=== PATIENT | male | born 1965 | race Caucasian/White ===

== ENCOUNTER 2019-12-12 10:38 | Emergency (ER) | payer OTHER ==
[2019-12-12 10:48] VITALS: BP 151/87; PULSE 73; TEMP 98.4; BMI 34.2
[2019-12-12] MEDS ORDERED: KETOROLAC TROMETHAMINE 30 MG/1 ML VIAL IM ONE (11:13)
[2019-12-12] MEDS ORDERED: KETOROLAC TROMETHAMINE 30 MG/1 ML VIAL ONE (11:22)
--- NOTE | 2019-12-12 11:25 | PDOC ---
History of Present Illness - General Chief Complaint: Back Pain Stated Complaint: LOWER BACK PAIN Time Seen by Provider: 12/12/19 11:10 History Source: Patient Exam Limitations: Clinical Condition - History of Present Illness Initial Comments: 12/12/19 11:21 Patient with no significant past medical history present with complaint of 3-day history of bilateral lower back pain which is worse with movement and getting up from sitting or laying position. 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 Denies any trauma or injury to back. Denies any history of chronic back pain. Denies any radiculopathy. Denies urinary frequency, dysuria, burning urination or urinary urgency. Report taking Aleve for symptoms with minimal improvement. Denies any other symptoms Occurred: reports: other (2 days) Severity: reports: moderate Pain Location: reports: back Method of Injury: Yes: unknown Modifying Factors: improves with: pain medication (aleve) Past History - Medical History Allergies/Adverse Reactions: Allergies Allergy/AdvReac Type Severity Reaction Status Date / Time No Known Allergies Allergy Verified 12/12/19 10:43 Home Medications: Ambulatory Orders Methocarbamol [Robaxin -] 500 mg PO BID PRN #14 tablet 12/12/19 Methylprednisolone [Medrol Dose Alfredo] 4 mg PO ASDIR #21 tablet 12/12/19 COPD: No HTN: Yes - Psycho-Social/Smoking History Smoking History: Current every day smoker Have you smoked in the past 12 months: Yes Number of Cigarettes Smoked Daily: 3 Information on smoking cessation initiated: Yes - Substance Abuse Hx (Audit-C & DAST Scrn) How often the patient has a drink containing alcohol: Never Score: In Men: 4 or > Positive; In Women: 3 or > Positive: 0 Screen Result (Pos requires Nsg. Audit-10AR): Negative In the last yr the pt used illegal drug/Rx for NonMed reason: No Score: Yes response is considered Positive: 0 Screen Result (Positive result requires Nsg. DAST-10): Negative Review of Systems - Review of Systems Able to Perform ROS?: Yes Is the patient limited Polish proficient: No Constitutional: No: Chills, Fever, Malaise HEENTM: No: Symptoms Reported, See HPI, Eye Pain, Blurred Vision, Tearing, Recent change in vision, Double Vision, Cataracts, Ear Pain, Ocular Prothesis, Ear Discharge, Nose Pain, Nose Congestion, Tinnitus, Nose Bleeding, Hearing Loss, Throat Pain, Throat Swelling, Mouth Pain, Dental Problems, Difficulty Swallowing, Mouth Swelling, Other Respiratory: No: Symptoms reported, See HPI, Cough, Orthopnea, Shortness of Breath, SOB with Exertion, SOB at Rest, Stridor, Wheezing, Productive cough, H emoptysis, Other Cardiac (ROS): No: Symptoms Reported, See HPI, Chest Pain, Edema, Irregular Heart Rate, Lightheadedness, Palpitations, Syncope, Chest Tightness, Other ABD/GI: No: Symptoms Reported, Constipated, Diarrhea, Nausea, Vomiting, Abdominal cramping : No: Symptoms Reported, See HPI, Burning, Dysuria, Discharge, Frequency, Flank Pain, Urgency, Testicular Mass, Testicular Swelling, Testicular Pain, Other Musculoskeletal: Yes: Symptoms Reported, See HPI, Back Pain Integumentary: No: Symptoms Reported, Rash Neurological: No: Symptoms reported, Weakness, Dizziness All Other Systems: Reviewed and Negative *Physical Exam - Vital Signs Last Vital Signs Temp Pulse Resp BP Pulse Ox 98.4 F 73 18 151/87 100 12/12/19 10:43 12/12/19 10:43 12/12/19 10:43 12/12/19 10:43 12/12/19 10:43 - Physical Exam 12/12/19 11:23 GENERAL: Well developed, well nourished. Awake and alert. No acute distress. PULMONARY: No evidence of respiratory distress. MUSCULOSKELETAL : Moderate tenderness over posterior paravertebral muscle of lumbosacral of L3-S1 on bilateral sides. No midline tenderness. No radiculopat hy. No bony deformities SKIN: Warm and dry. Normal capillary refill. No rashes. No jaundice. NEUROLOGICAL: Alert, awake, appropriate. No motor deficits in the lower extremities. Gait is normal without ataxia. PSYCHIATRIC: Cooperative. Good eye contact. Appropriate mood and affect. General Appearance: Yes: Nourished, Appropriately Dressed. No: Apparent Distress ED Treatment Course - RADIOLOGY Radiology Studies Ordered: Category Date Time Status SPINE-LUMBAR SACRAL [RAD] Stat Radiology 12/12/19 11:13 Ordered Medical Decision Making - Medical Decision Making 12/12/19 11:22 Patient with no significant past medical history present with complaint of 3-day history of bilateral lower back pain which is worse with movement and getting up from sitting or laying position. 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 Denies any trauma or injury to back. Denies any history of chronic back pain. Denies any radiculopathy. Denies urinary frequency, dysuria, burning urination or urinary urgency. Report taking Aleve for symptoms with minimal improvement. Denies any other symptoms Exam significant for moderate tenderness of bilateral paravertebral muscle of lumbosacral spine of L2-S1 which is worse with external rotation of the hip. No midline tenderness. No radiculopathy. Symptoms likely muscle spasm Toradol 30 mg IM ordered for pain. X-ray of lumbosacral spine ordered to rule out acute abnormality 12/12/19 11:58 X-ray of lumbosacral spine shows arthritis changes with mild strain of the spine with no acute abnormality. Patient stable for discharge on Medrol pack per inflammatory effect and Robaxin for spasm with neurosurgery follow-up. Patient left department without complication Discharge - Discharge Information Problems reviewed: Yes Clinical Impression/Diagnosis: Lower back pain Qualifiers: Chronicity: acute Back pain laterality: bilateral Sciatica presence: without sciatica Qualified Code(s): M54.5 - Low back pain Condition: Stable Disposition: HOME - Admission No - Additional Discharge Information Prescriptions: Methylprednisolone [Medrol Dose Alfredo] 4 mg PO ASDIR #21 tablet Methocarbamol [Robaxin -] 500 mg PO BID PRN #14 tablet PRN Reason: Back Pain - Follow up/Referral Referrals: Melania Arias MD [Primary Care Provider] - Joseph Senior MD, FA[facility] [Staff Physician] - - Patient Discharge Instructions Patient Printed Discharge Instructions: DI for Back Spasm Additional Instructions: Your back x-ray is fine and shows no acute abnormality. Your pain is likely from back spasm. Take prescribed medication as prescribed for pain and spasm. Apply heat to the back 2-3 times a day as needed for pain. Follow-up with your primary care or referred orthopedic desktop specialist if symptoms persist for more than 4 days - Post Discharge Activity
== END 2019-12-12 12:00 | disposition home or self-care (01) ==
LOC: JERFT 10:38 → EDBD 10:38 → JERFT 12:00
PROC: 3E0233Z Introduction of Anti-inflammatory into Muscle, Percutaneous Approach (ICD-10-PCS; principal; 2019-12-12)
DX: M54.5 Low back pain (principal)
CPT/HCPCS: 72100-TC-FY; 99284-25